=== PATIENT | male | born 1945 | race Caucasian/White ===

== ENCOUNTER 2017-10-08 17:56 | Emergency (ER) | payer OTHER ==
[~2017-10-08] VITALS: Ht 177.8 cm; Wt 85.8 kg
[~2017-10-08 17:56] MED LIST: ADVAIR 500/501 DISK; ADVAIR 500/501 DISK IH; CARDIZEM CD,CA120 MG PO; CARDIZEM CD,CA180 MG PO; CARDIZEM CD120 MG PO; CARTIA XT120 MG; CARTIA XT120 MG PO; CLEOCIN150 MG; COMBIVENT INH14.7 GM IH; COMBIVENT200 INHALA; COMBIVENT200 INHALA IH; COUMADIN; COUMADIN,JANTOVE4 MG PO; COUMADIN,JANTOVE5 MG PO; COUMADIN2 MG PO; COUMADIN3 MG PO; COUMADIN4 MG PO; Cardizem CD,Cartia X PO; Cartia XT; Combivent IH; DIAZEPAM5 MG PO; DIGOXIN125 MCG; DIGOXIN125 MCG PO; DIGOXIN250 MCG PO; FUROSEMIDE20 MG; FUROSEMIDE20 MG PO; K-DUR20 MEQ PO; KLOR-CON M2020 MEQ PO; LANOXIN,DIGI0.125 MG PO; LASIX10 MG PO; LASIX20 MG PO; LASIX40 MG PO; LEVOFLOXACIN750 MG; LOPRESSOR50 MG PO; Levaquin PO; METOPROLOL SUCC50 MG; METOPROLOL TART50 MG PO; POTASSIUM CHLO20 ME1; PREDNISONE5 MG; Percocet 5/325,Endoc PO; SUPPORT-5001 EACH PO; SYNTHROID50 MCG PO; TOPROL XL100 MG PO; TOPROL XL50 MG PO; VALIUM5 MG PO; VITAMIN B COMP1 EACH PO; VITAMIN B-150 MG PO; VITAMIN C1000 M3 PO; VITAMIN C1000 MG PO; VITAMIN D-32000 UNIT PO; VITAMIN D1000 UNIT PO; VITAMIN D31000 UNIT PO; WARFARIN SODIUM2 MG; diazepam; metoprolol; predniSONE PO
[2017-10-08] MEDS ORDERED: ELIQUIS5 M1 PO (18:53)
[2017-10-08] MEDS ORDERED: VITAMIN C1000 MG PO (18:54)
[2017-10-08] MEDS ORDERED: B-COMPLEX-VITA1 EACH PO (18:54)
[2017-10-08] MEDS ORDERED: VITAMIN D31000 UNI2 PO (18:54)
[2017-10-08 21:36] VITALS: BP 101/76
== END 2017-10-08 21:51 | disposition home or self-care (01) ==
LOC: EME 17:56
PROC: 3E0234Z Introduction of Serum, Toxoid and Vaccine into Muscle, Percutaneous Approach (ICD-10-PCS; principal; 2017-10-08)
PROC: 0HQLXZZ Repair Left Lower Leg Skin, External Approach (ICD-10-PCS; principal; 2017-10-08)
DX: S81.012A Laceration without foreign body, left knee, initial encounter (principal); W18.30XA Fall on same level, unspecified, initial encounter; Y92.511 Restaurant or cafe as the place of occurrence of the external cause; Z23 Encounter for immunization; I11.0 Hypertensive heart disease with heart failure; I50.9 Heart failure, unspecified; K21.9 Gastro-esophageal reflux disease without esophagitis; E78.5 Hyperlipidemia, unspecified; J44.9 Chronic obstructive pulmonary disease, unspecified; G47.30 Sleep apnea, unspecified; Z87.891 Personal history of nicotine dependence; Z79.01 Long term (current) use of anticoagulants
CPT/HCPCS: 73564; 99281; 99284